=== PATIENT | female | born 1960 | race Caucasian/White ===

== ENCOUNTER 2020-11-26 23:58 | Emergency (ER) | payer OTHER ==
[2020-11-27 00:13] VITALS: BP 130/77; PULSE 69; BMI 22.3
[2020-11-27] MEDS ORDERED: DIPHTH,PERTUSS(ACELL),TET 0.5 ML DISP.SYRIN IM ONE (00:28)
[2020-11-27 00:50] VITALS: TEMP 98
== END 2020-11-27 00:50 | disposition home or self-care (01) ==
LOC: FER 23:58
PROC: 3E0234Z Introduction of Serum, Toxoid and Vaccine into Muscle, Percutaneous Approach (ICD-10-PCS; principal; 2020-11-26)
DX: S60.511A Abrasion of right hand, initial encounter (principal); T68.XXXA Hypothermia, initial encounter; W23.1XXA Caught, crushed, jammed, or pinched between stationary objects, initial encounter
CPT/HCPCS: 90715; 99284-25